=== PATIENT | female | born 2000 | race Caucasian/White ===

== ENCOUNTER 2021-01-26 11:54 | Emergency (ER) | payer OTHER, SELFPAY ==
[2021-01-26 13:04] VITALS: BP 123/87; PULSE 109; RESP 18; TEMP 37.6; O2SAT 95; BMI 40.3
[2021-01-26] MEDS: ondansetron 4 MG Tablet PO (14:17)
[2021-01-26] MEDS: HYDROcodone-acetaminophen 5-325 mg Tablet 1 TAB PO (14:17)
[2021-01-26 14:26] VITALS: RESP 15
[2021-01-26 14:32] LABS: HCG Qualitative Urine. Negative (Negative)
[2021-01-26 14:36] LABS: Add Urine Culture? No; Add Urine Microscopic? YES; Bacteria Urine 1+ /hpf; Bilirubin Urine Neg (Negative); Blood Urine Neg (Negative); Glucose Urine UA Norm (Normal); Ketones Urine Negative (Negative); Leukocyte Esterase Urine 1+ (Negative); Mucus Urine TRACE /hpf; Nitrate Urine Negative (Negative); Protein Urine Neg (Negative); Urine Appearance Clear (CLEAR); Urine Color Yellow (Yellow); Urobilinogen Urine Norm (Negative); WBC Urine 0-4 /hpf (0-5); pH Urine 6.5 (5-7)
--- NOTE | 2021-01-26 15:05 | W.ED.ABDPA2 ---
HPI - Abdominal Pain General: Chief Complaint: Abdominal Pain Stated Complaint: COVID + Time Seen by Provider: 01/26/21 13:45 Source: patient History of Present Illness: HPI narrative: Patient is day 6 with Covid. She has had mild cough but states that today her fever came back worse but she is mostly here because of some lower abdominal and back pain but she is also having body aches throughout her large muscle groups. She is concerned that she may have a UTI. Associated Symptoms: Reports fever(s) and nausea Related Data: Date of Last Menstrual Period: 09/19/19 Review of Systems Const: Reports: fever(s) ENMT: Reports: nasal congestion Resp: Reports: non-productive cough GI: Reports: abdominal pain and nausea : Reports: flank pain Musc: Reports: back pain and muscle cramps PFSH ED PFSH: Family History Other Hypertension Hypothyroid Social History Smoking and tobacco status: never smoked Alcohol intake: never Adopted: No Marital status: Single Female Reproductive History: Date of last menstrual period: 09/19/19 Physical Exam Const: COMMON NORMALS: no acute distress, average body habitus, patient oriented x3, no limitations, healthy appearing, alert and well nourished HENMT: COMMON NORMALS: normocephalic, atraumatic, hearing grossly normal bilaterally, external ears normal, EAC's normal, TM's normal bilaterally, Normal external nose present, Normal nasal mucous membranes and turbinates present, moist oral mucous membranes, oropharynx normal, dentition normal and gingiva normal HEAD & SCALP: normocephalic and atraumatic NOSE: Normal external nose present and Normal nasal mucous membranes and turbinates present EXTERNAL EAR: Yes external ears normal EXTERNAL AUDITORY CANAL: EAC's normal TYMPANIC MEMBRANE: TM's normal bilaterally Neck/C-Spine: COMMON NORMALS: no JVD Resp: COMMON NORMALS: normal respiratory effort, No retractions, No use of accessory muscles, clear to auscultation bilaterally and percussion normal AUSCULTATION: clear to auscultation bilaterally PERCUSSION: percussion normal Cardio: COMMON NORMALS: no JVD, regular rate, regular rhythm, S1 normal heart sound present, S2 normal heart sound present, No gallops present (Cardio), No clicks present (Cardio), No murmurs present (Cardio), No rub (Cardio) and Peripheral pulses 2+ throughout RATE: regular rate RHYTHM: regular rhythm HEART SOUNDS: S1 normal heart sound present and S2 normal heart sound present PERIPHERAL PULSES: Peripheral pulses 2+ throughout GI: COMMON NORMALS: Normal to inspection, nondistended, normoactive bowel sounds present, Soft to palpation, non-tender, No hepatosplenomegaly present, no masses and no bruits PALPATION: Yes Soft to palpation and Yes No hepatosplenomegaly present Neuro: COMMON NORMALS: patient oriented x3 SENSORIUM/ORIENTATION: Yes alert Course Vital Signs: Vital signs: Vital Signs Temperature 99.6 F 01/26/21 13:04 Pulse Rate 109 H 01/26/21 13:04 Respiratory Rate 15 01/26/21 14:26 Blood Pressure 123/87 01/26/21 13:04 Pulse Oximetry 95 01/26/21 13:04 MDM - Abdominal Pain MDM Narrative: Medical decision making narrative: Patient is well-appearing and does not appear to be in any respiratory distress. Pain is diffuse across the lower back and flanks and lower abdomen and does not seem to have any focal tenderness. Physical exam is benign. Suspect patient's symptoms are secondary to Covid. Will discharge patient home with Vik and Andreas. Lab Data: Labs: Lab Results 01/26/21 01/26/21 Range/Units 14:20 14:20 HCG, Qual Negative (Negative) Urine Color Yellow (Yellow) Urine Appearance Clear (CLEAR) Urine pH 6.5 (5-7) Ur Specific Gravit y 1.010 (1.005-1.030) Urine Protein Neg (Negative) Urine Glucose (UA) Norm (Normal) Urine Ketones Negative (Negative) Urine Blood Neg (Negative) Urine Nitrate Negative (Negative) Urine Bilirubin Neg (Negative) Urine Urobilinogen Norm (Negative) mg/dL Ur Leukocyte [place] 1+ H (Negative) Urine RBC None (0-2) /hpf Urine WBC 0-4 H (0-5) /hpf Ur Squamous Epith Cells 10-15 H (0-5) /hpf Amorphous Sediment Not Reportable Urine Bacteria 1+ H (NONE) /hpf Urine Mucus Trace /hpf Discharge Plan Discharge Prescriptions: No Action ciclopirox 8 % solution 1 applic topical DAILY 28 Days Qty: 6.6 RF: 0 hydrochlorothiazide 12.5 mg tablet 12.5 mg PO DAILY Qty: 30 RF: 0 dexamethasone [Decadron] 4 mg tablet 4 mg PO DAILY Qty: 7 RF: 0 azithromycin 250 mg tablet See Rx Instructions PO .COMPLEX Qty: 6 RF: 0 norethindrone-e.estradiol-iron [Junel FE 1.5/30 (28)] 1.5 mg-30 mcg (21)/75 mg (7) tablet See Rx Instructions .ROUTE .COMPLEX Qty: 84 RF: 0 Coding Level of Care Code ED [employer] Instructor for Nolan Greenfield
[2021-01-26 15:15] VITALS: RESP 15
== END 2021-01-26 15:16 | disposition home or self-care (01) ==
PROVIDERS: Registered Nurse; Emergency Provider Emergency Medicine; PCP Registered Nurse
DX: R10.9 Unspecified abdominal pain (principal)
CPT/HCPCS: 81001; 81025; 99283; Q0162

== ENCOUNTER → 2021-04-22 09:49 | Outpatient (BNVA) | payer OTHER, SELFPAY | PROVIDERS: PCP Registered Nurse; Visit Provider Registered Nurse | DX: L65.9 Nonscarring hair loss, unspecified (principal) | CPT/HCPCS: 84443 ==

== ENCOUNTER → 2021-11-11 08:50 | Outpatient (BNVA) | payer OTHER, SELFPAY | PROVIDERS: PCP Registered Nurse; Referring Provider Nurse Practitioner Family; Visit Provider Nurse Practitioner Women's Health | DX: R10.2 Pelvic and perineal pain (principal); N89.8 Other specified noninflammatory disorders of vagina | CPT/HCPCS: 87070; 87205; 87491; 87591; 87661 ==

== ENCOUNTER 2021-12-12 22:35 | Emergency (ER) | payer OTHER, SELFPAY ==
[2021-12-12 22:40] VITALS: BP 157/100; PULSE 98; RESP 18; TEMP 36.5; O2SAT 98; BMI 41.4
--- NOTE | 2021-12-12 22:57 | CTR_ITS ---
PROCEDURE INFORMATION: Exam: CT Head Without Contrast Exam date and time: 12/12/2021 11:08 PM Age: 20 years old Clinical indication: Weakness, facial; Additional info: Left side of face weakness TECHNIQUE: Imaging protocol: Computed tomography of the head without contrast. Radiation optimization: All CT scans at this facility use at least one of these dose optimization techniques: automated exposure control; mA and/or kV adjustment per patient size (includes targeted exams where dose is matched to clinical indication); or iterative reconstruction. COMPARISON: CT head wo con* [id number] 10/01/2017 4:32 PM RADIATION DOSE METRICS: Total DLP (mGy-cm): 815.48 FINDINGS: Brain: Normal. No hemorrhage. Unremarkable white matter. No mass effect. Cerebral ventricles: No ventriculomegaly. Paranasal sinuses: Visualized sinuses are unremarkable. No fluid levels. Mastoid air cells: Visualized mastoid air cells are well aerated. Bones/joints: Unremarkable. No acute fracture. Soft tissues: Unremarkable. CT/CT head wo con* [id number] IMPRESSION: No acute intracranial abnormality.
--- NOTE | 2021-12-12 22:58 | W.ED.NEUROSD ---
Documented by User: SHAUNA Park 12/13/21 01:07 HPI - Neuro Symptoms/Deficit General: Chief Complaint: Neuro Symptoms/Deficit Stated Complaint: Left side face delayed Time Seen by Provider: 12/12/21 22:40 History of Present Illness: Patient is a 20-year-old female comes to the ED with left side of face weakness. Facial weakness was noticeable around 8:30 tonight. Yesterday she developed some left ear pain and then had some tongue numbness yesterday as well but has continued today. She went and saw her PCP today to take a look at her ears and they thought her ears looked fine. Around 8:30 PM tonight she can tell she was having some weakness and trouble controlling the left side of her face and her family noticed it as well. She endorses having some mild left mandibular pain as well that originates from the left ear and then radiates down to her jaw. Denies any vision changes, headache or fevers. Associated symptoms: Deny chest pain, headache(s), nausea or vomiting Review of Systems Const: Denies: fever(s), chills or fatigue Eyes: Denies: change in vision or eye discomfort ENMT: Reports: ear or mastoid pain (Left ear) and other (Pain in left jaw); Denies: throat pain, odynophagia, nasal discharge or nasal congestion Card: Denies: chest pain, palpitations, edema, swelling of feet/ankles, dyspnea on exertion or orthopnea Resp: Denies: dyspnea, productive cough or non-productive cough GI: Denies: abdominal pain, nausea, vomiting, diarrhea, constipation or hematochezia : Denies: flank pain, dysuria or hematuria Musc: Denies: neck pain, back pain or extremity swelling Skin/Breast: Denies: rash or new lesions Neuro: Reports: other (Left side of face weakness); Denies: headache(s), numbness in extremities or weakness in extremities [facility] ED PFSH: Medical History COVID-19 (~01/2021) Essential hypertension (~2019) situational -- has resolved GERD (gastroesophageal reflux disease) Hypercholesteremia Morbid obesity No pertinent past medical history neghx: dm, thyroid, dvt/pe PCP: Dr. Mik Priest or [facility] Surgical History History of tonsillectomy and adenoidectomy Hx of myringoplasty Family History Mother Heart disease Hypercholesteremia Hypertension Grandmother Heart disease Stroke Thyroid disease Denies family history of Colon cancer Ovarian cancer Diabetes Breast cancer Uterine cancer Female Reproductive History: Date of last menstrual period: 12/10/21 NIH stroke score NIHSS: Level Of Consciousness - 1a: 0 Level Of Consciousness Questions - 1b: Both Correct Level Of Consciousness Commands - 1c: Both Correct Best Gaze - 2: Normal Visual Frazier - 3: No Visual Loss Facial Palsy - 4: Partial Paralysis Motor Arm Right - 5: No Drift Motor Arm Left - 5: No Drift Motor Leg Right - 6: No Drift Motor Leg Left - 6: No Drift Limb Ataxia - 7: Absent Sensory - 8: Normal Best Language - 9: No Aphasia Dysarthia - 10: Normal Extinction And Inattention - 11: 0 Score: Total Score: 2 Physical Exam Const: COMMON NORMALS: patient oriented x3 and alert GENERAL APPEARANCE: cooperative and comfortable HENMT: COMMON NORMALS: normocephalic HEAD & SCALP: normocephalic MOUTH: Normal oral and palatal mucosa present THROAT: posterior oropharynx normal and uvula midline Eye: COMMON NORMALS: Equal, round and reactive pupils present, EOMs intact bilaterally, conjunctivae normal and normal visual frazier by confrontation CONJUNCTIVA: Yes conjunctivae normal PUPIL: Yes Equal, round and reactive pupils present Neck/C-Spine: COMMON NORMALS: supple GENERAL: Yes normal visual inspection Resp: COMMON NORMALS: normal respiratory effort, No retractions, No use of accessory muscles and clear to auscultation bilaterally AUSCULTATION: clear to auscultation bilaterally Cardio: COMMON NORMALS: regular rate, regular rhythm, S1 normal heart sound present, S2 normal heart sound present, No gallops present (Cardio), No clicks present (Cardio), No murmurs present (Cardio) and Peripheral pulses 2+ throughout RATE: regular rate RHYTHM: regular rhythm HEART SOUNDS: S1 normal heart sound present and S2 normal heart sound present PERIPHERAL PULSES: Peripheral pulses 2+ throughout GI: COMMON NORMALS: Normal to inspection, nondistended, normoactive bowel sounds present, Soft to palpation, non-tender and no masses PALPATION: Yes Soft to palpation : COMMON NORMALS: Yes no CVA tenderness BLADDER/KIDNEY EXAM: Yes no CVA tenderness Back/Pelvis: COMMON NORMALS: no CVA tenderness Neuro: COMMON NORMALS: patient oriented x3, moves all extremities, no focal motor deficits and no sensory deficits noted SENSORIUM/ORIENTATION: Yes alert CRANIAL NERVES: Yes CN VII (facial) Laterality: left CN VII left: facial droop, unable to puff cheeks, unable to raise eyebrow(s), weak closing of eye(s), asymmetrical smile and other (Paralysis of forehead as well) COORDINATION/BALANCE: [id number] test normal SPEECH: speech normal SENSORY EXAM: Yes extremities (intact) MOTOR EXAM: 5/5 motor strength present throughout COORDINATION: [id number] test normal OTHER: Patient has visible left-sided facial droop. Patient also has some paralysis that involves left forehead. Skin: GENERAL SKIN EXAM: dry skin Course Vital Signs: Vital signs: Vital Signs Temperature 97.7 F 12/12/21 22:40 Pulse Rate 87 12/13/21 01:03 Respiratory Rate 20 H 12/13/21 01:03 Blood Pressure 128/80 12/13/21 01:03 Pulse Oximetry 98 12/13/21 01:03 MDM - Neuro Symptoms/Deficit Medical Decision Making Patient is a 20-year-old female comes to the ED with left facial weakness. Symptoms started approximately 2 hours before arrival to the ED. Vitals are stable. Exam of patient does show some left facial droop. She has weakness to left side of face and it involves her forehead as well which is suggestive of possible Jurado's palsy. The rest of her neuro exam is normal and she has no other deficits. NIHSS-2. Head CT showed no acute findings. I discussed case with Dr. Hein and my suspicions for Jurado's palsy. He came in and took a look at patient as well and agreed. She was diagnosed with Jurado's palsy and was given a dose of steroid here in the ED and discharged home with a prescription for steroids. She was told to follow-up with her PCP within the next 7 days for reevaluation. Return to ED precautions given. Patient understood and agreed with plan. Lab Data Radiology Impressions Head CT 12/12/21 22:57 IMPRESSION: No acute intracranial abnormality. Discharge Plan Discharge Patient Disposition: Home Clinical Impression: Jurado's palsy Condition: Stable Prescriptions: New Medrol (Yg) 4 mg tablets,dose pack See Rx Instructions .ROUTE .COMPLEX Qty: 21 0RF Rx Instructions: orally per package directions No Action atorvastatin 20 mg tablet 20 mg PO DAILY 0RF ibuprofen 800 mg tablet 800 mg PO TID PRN (Reason: pain) Qty: 30 1RF omeprazole 20 mg capsule,delayed release(DR/EC) 20 mg PO DAILY 0RF norethindrone-e.estradiol-iron [Junel FE 1.5/30 (28)] 1.5 mg-30 mcg (21)/75 mg (7) tablet See Rx Instructions .ROUTE .COMPLEX Qty: 84 0RF Dose Instruction: Take 1 tablet by mouth once daily Rx Instructions: Take 1 tablet by mouth once daily levocetirizine [Xyzal] 5 mg tablet 5 mg PO BEDTIME Qty: 30 0RF Discharge Orders: Discharge ED (Routine); Ordered 12/13/21 Ordered By: Elias Pillai Referrals: Kris Priest FNP [Primary Care Provider] - Discharge Diet: Regular Discharge Activity: Resume usual activity Patient Instructions: Jurado Palsy (ED) Activity Restrictions/Additional Instructions: Follow-up with medical provider as directed within the next 7 days for reevaluation. Take medications as prescribed. Return to the ER or your medical provider if condition worsens. Please read and understand discharge instructions. Thank you for choosing [facility] for your healthcare needs today. Please realize this is an emergency room and that we are providing you with a medical screening exam and this may not be complete and all inclusive of all the testing and or work up that you may need to determine your ailment or severity of your illness. It is very important that you follow up as instructed or that you return to the Emergency Department should you have concerns or if your condition changes or worsens in any way. Coding Level of Care Code ED Glued Wood Tester for Chg Fwd Exam Comprehensive Documented by User: Izaiah Hein, DO 12/13/21 03:26 HPI - Neuro Symptoms/Deficit General: Chief Complaint: Neuro Symptoms/Deficit Stated Complaint: Left side face delayed Time Seen by Provider: 12/12/21 22:40 [facility] ED PFSH: Medical History COVID-19 (~01/2021) Essential hypertension (~2019) situational -- has resolved GERD (gastroesophageal reflux disease) Hypercholesteremia Morbid obesity No pertinent past medical history neghx: dm, thyroid, dvt/pe PCP: Dr. Mik Priest or [facility] Surgical History History of tonsillectomy and adenoidectomy Hx of myringoplasty Family History Mother Heart disease Hypercholesteremia Hypertension Grandmother Heart disease Stroke Thyroid disease Denies family history of Colon cancer Ovarian cancer Diabetes Breast cancer Uterine cancer NIH stroke score Score: Total Score: 2 Course Vital Signs: Vital signs: Vital Signs Temperature 97.7 F 12/12/21 22:40 Pulse Rate 87 12/13/21 01:03 Respiratory Rate 20 H 12/13/21 01:03 Blood Pressure 128/80 12/13/21 01:03 Pulse Oximetry 98 12/13/21 01:03 MDM - Neuro Symptoms/Deficit Medical Decision Making Patient is a 20-year-old female comes to the ED with left facial weakness. Symptoms started approximately 2 hours before arrival to the ED. Vitals are stable. Exam of patient does show some left facial droop. She has weakness to left side of face and it involves her forehead as well which is suggestive of possible Jurado's palsy. The rest of her neuro exam is normal and she has no other deficits. NIHSS-2. Head CT showed no acute findings. I discussed case with Dr. Hein and my suspicions for Jurado's palsy. He came in and took a look at patient as well and agreed. She was diagnosed with Jurado's palsy and was given a dose of steroid here in the ED and discharged home with a prescription for steroids. She was told to follow-up with her PCP within the next 7 days for reevaluation. Return to ED precautions given. Patient understood and agreed with plan. This patient was originally seen by Mr. Freya PA-C.? I have seen the patient as well. I agree with his history, evaluation, and treatment. Lab Data Radiology Impressions Head CT 12/12/21 22:57 IMPRESSION: No acute intracranial abnormality. Discharge Plan Discharge Patient Disposition: Home Clinical Impression: Jurado's palsy Condition: Stable Prescriptions: New Medrol (Yg) 4 mg tablets,dose pack See Rx Instructions .ROUTE .COMPLEX Qty: 21 0RF Rx Instructions: orally per package directions No Action atorvastatin 20 mg tablet 20 mg PO DAILY 0RF ibuprofen 800 mg tablet 800 mg PO TID PRN (Reason: pain) Qty: 30 1RF omeprazole 20 mg capsule,delayed release(DR/EC) 20 mg PO DAILY 0RF norethindrone-e.estradiol-iron [Junel FE .5/ (28)] 1.5 mg-30 mcg (21)/75 mg (7) tablet See Rx Instructions .ROUTE .COMPLEX Qty: 84 0RF Dose Instruction: Take 1 tablet by mouth once daily Rx Instructions: Take 1 tablet by mouth once daily levocetirizine [Xyzal] 5 mg tablet 5 mg PO BEDTIME Qty: 30 0RF Discharge Orders: Discharge ED (Routine); Ordered 12/13/21 Ordered By: Elias Pillai Referrals: Kris Priest FNP [Primary Care Provider] - Discharge Diet: Regular Discharge Activity: Resume usual activity Patient Instructions: Jurado Palsy (ED) Activity Restrictions/Additional Instructions: Follow-up with medical provider as directed within the next 7 days for reevaluation. Take medications as prescribed. Return to the ER or your medical provider if condition worsens. Please read and understand discharge instructions. Thank you for choosing [facility] for your healthcare needs today. Please realize this is an emergency room and that we are providing you with a medical screening exam and this may not be complete and all inclusive of all the testing and or work up that you may need to determine your ailment or severity of your illness. It is very important that you follow up as instructed or that you return to the Emergency Department should you have concerns or if your condition changes or worsens in any way. Coding Level of Care Code ED Glued Wood Tester for Nolan Fwd Exam Comprehensive
[2021-12-13] VITALS: BP 124/81; PULSE 90; RESP 18; O2SAT 95
[2021-12-13 01:00] VITALS: BP 178/97; PULSE 91; RESP 16; O2SAT 95
[2021-12-13 01:03] VITALS: BP 128/80; PULSE 87; RESP 20; O2SAT 98
== END 2021-12-13 00:45 | disposition home or self-care (01) ==
PROVIDERS: Emergency Provider Physician Assistant; PCP Registered Nurse
DX: G51.0 Bell's palsy (principal)
CPT/HCPCS: 70450; 96372; 99283; J2930

== ENCOUNTER → 2022-07-19 16:04 | Outpatient (BNVA) | payer OTHER, SELFPAY | PROVIDERS: PCP Registered Nurse; Visit Provider Emergency Medicine | DX: R05.9 Cough, unspecified (principal); J06.9 Acute upper respiratory infection, unspecified | CPT/HCPCS: 87400 ==

== ENCOUNTER → 2023-01-20 17:22 | Outpatient (BNVA) | payer OTHER, SELFPAY | PROVIDERS: PCP Registered Nurse; Visit Provider Emergency Medicine | DX: J02.9 Acute pharyngitis, unspecified (principal); J20.8 Acute bronchitis due to other specified organisms; B96.89 Other specified bacterial agents as the cause of diseases classified elsewhere | CPT/HCPCS: 87070; 87071; 87880 ==

== ENCOUNTER 2023-03-03 11:16 | Outpatient (CLI) | payer OTHER, SELFPAY ==
--- NOTE | 2023-03-03 11:31 | XRR_ITS ---
PROCEDURE INFORMATION: Exam: XR Chest Exam date and time: 03/03/2023 11:56 AM Age: 22 years old Clinical indication: Shortness of breath TECHNIQUE: Imaging protocol: Radiologic exam of the chest. Views: 2 views. COMPARISON: No relevant prior studies available. FINDINGS: Lungs: Unremarkable. No consolidation. Pleural spaces: Unremarkable. No pleural effusion. No pneumothorax. Heart/Mediastinum: Unremarkable. No cardiomegaly. Bones/joints: Mild biphasic spinal curvature. XR/XR chest 2V* [id number] IMPRESSION: No acute findings.
== END 2023-03-03 11:17 | disposition home or self-care (01) ==
PROVIDERS: PCP Registered Nurse; Visit Provider Nurse Practitioner Family
DX: R06.02 Shortness of breath (principal)
CPT/HCPCS: 71046

== ENCOUNTER 2023-03-17 10:05 | Outpatient (CLI) | payer OTHER, SELFPAY | END 2023-03-17 10:06 | disposition home or self-care (01) | PROVIDERS: PCP Nurse Practitioner Family; Visit Provider Nurse Practitioner Family | DX: R06.02 Shortness of breath (principal) | CPT/HCPCS: 94010; 94726; 94729 ==

== ENCOUNTER → 2023-04-05 10:45 | Outpatient (BNVA) | payer OTHER, SELFPAY | PROVIDERS: PCP Nurse Practitioner Family; Visit Provider Internal Medicine Cardiovascular Disease | DX: R00.0 Tachycardia, unspecified (principal) | CPT/HCPCS: 93005 ==

== ENCOUNTER → 2023-08-31 16:35 | Outpatient (BNVA) | payer OTHER, SELFPAY | PROVIDERS: PCP Nurse Practitioner Family; Visit Provider Nurse Practitioner Family | DX: R05.9 Cough, unspecified (principal) | CPT/HCPCS: 71046 ==

== ENCOUNTER → 2023-11-30 11:08 | Outpatient (BNVA) | payer OTHER, SELFPAY | PROVIDERS: PCP Nurse Practitioner Family; Visit Provider Nurse Practitioner Women's Health | DX: Z31.9 Encounter for procreative management, unspecified (principal); E66.01 Morbid (severe) obesity due to excess calories; I10 Essential (primary) hypertension; E78.00 Pure hypercholesterolemia, unspecified; Z30.011 Encounter for initial prescription of contraceptive pills; Z01.419 Encounter for gynecological examination (general) (routine) without abnormal findings; Z30.41 Encounter for surveillance of contraceptive pills | CPT/HCPCS: 82306; 83036; 84443; 85025; 86762; 88175 ==

== ENCOUNTER 2023-12-09 11:39 | Outpatient (CLI) | payer OTHER, SELFPAY ==
--- NOTE | 2023-12-09 11:56 | OP.DCCON ---
Reason for Visit: E66.01 - Morbid (severe) obesity due to excess sima Person Interviewed: Patient Medical History, Labs and Background: hypoactive thyroid, wants to get Height: 4 ft 8 in Weight: 311 lb BMI: 50.3 kg/m2 IBW: 200lbs Weight History: Never tiny...in high school weighed 257 and that is what she wants to get back too, initially. Then Vicky would like to be 200 lbs. Concerns and Goals: First goal is 260lbs, IBW is 200lbs. Sleep Hygiene: She sleeps really well - no big issues. Physical Activity: Like sports more than walking - volleyball - but might be willing to do some walking. Food Allergies and Sensitivities: Big problems with eggs (but can eat eggs in foods), lactose intolerant or maybe just sensitive 24 Hour Recall: Breakfast Time: 6:30am poptart on way to work/school Snack Time: Lunch Time: 11:30am whatever school lunch is... Snack Time: Dinner Time: 6:30pm cooks meat/veg/pasta Snack Time: sweets... Eating Out: Roughly eats out 1-3x/week for [employer] or [employer] Soda vs Milk vs Water: She doesn't like water and has maybe 1-2 sodas/month and no coffee/milk at this time. Additional Comments: Fixing meals that both she and her fiance like is an issue. Vicky says she meal preps d/t financial constraints. Sweets, especially chocolate, are a weakness. Sometimes when she is busy she doesn't eat until lunch or dinner and then she is starving. When in high school she played a sport every season, but isn't a big fan of walking. Her Mom and mother-in law and fiance are all sources of support and encouragement. Recommendations: Assessment: Vicky would like to lose weight and to figure out how to cook for herself and her fiance who is a picky eater. In general she is willing to make changes, especially because she wants to start a family at some point. Nutrition diagnosis: Excessive calorie intake r/t habits and patterns AEB BMI of 50 kg/m2. Intervention: We wrote down goals and the first was to eat something at breakfast other then a poptart - preferably a high protein shake or smoothie, with the idea that she wouldn't be so hungry and/or starving later. Encouraged 3 meals or high quality snacks to avoid being so hungry that she makes poor food choices or overeats. Next we talked about creating the right environment at home, utilizing their practice of meal planning and prepping, and having the kinds of foods in the fridge/pantry that suit her preferences. We talked about healthy snack foods to have on hand that would always combine protein like cheese or peanut butter or hummus with fresh veggies or fruits or whole grain/ high protein carbs. Then we discussed drinking water and settled on 40-60ounces/day. Since she can't play as many sports as she did in high school we talked about a modest goal of walking 10-15 minutes/day for 2-3 x/week to start - emphasizing the importance of activity not only in weight loss but also mental and emotional health. Because she likes to look up recipes, I suggested the Mediterranean style of eating. In the end we talked about high protein, low carb eating and that she needed to start with simple changes and build from there. In regards to her fiance being a picky eater, I recommended that he take part in the cooking and meal prep if he is unwilling to eat what she fixes. Monitoring and evaluation: The above stated goals were written on a take home sheet that included my name and email and phone for follow up as needed. Coding Level of Care Code Nutrition/Individ/Init 60 min Time Spent (min) 60
== END 2023-12-09 11:40 | disposition home or self-care (01) ==
PROVIDERS: PCP Nurse Practitioner Family; Visit Provider Nurse Practitioner Women's Health
DX: E66.01 Morbid (severe) obesity due to excess calories (principal); I10 Essential (primary) hypertension; E78.00 Pure hypercholesterolemia, unspecified; Z31.9 Encounter for procreative management, unspecified
CPT/HCPCS: 97802

== ENCOUNTER → 2024-03-19 12:25 | Outpatient (BNVA) | payer OTHER, SELFPAY | PROVIDERS: PCP Nurse Practitioner Family; Visit Provider Emergency Medicine | DX: M54.50 Low back pain, unspecified (principal); R39.9 Unspecified symptoms and signs involving the genitourinary system | CPT/HCPCS: 81000; 87086 ==

== ENCOUNTER 2024-08-01 16:02 | Outpatient (CLI) | payer OTHER, SELFPAY ==
[2024-08-01 17:12] LABS: Basophils # 0.1 10^3/uL (0.0-0.1); Basophils % 0.6 %; Eosinophils # 0.1 10^3/uL (0.0-0.8); Eosinophils % 1.4 %; Hematocrit 40.4 % (36-47); Lymphocytes # 2.2 10^3/uL (0.8-4.8); Lymphocytes % 28.3 %; Mean Corpuscular HGB Conc 32.7 g/dL (30-55); Mean Corpuscular Hemoglobin 28.8 pg (27-33); Mean Corpuscular Volume 88.2 fl (85-98); Monocytes # 0.6 10^3/uL (0.2-0.9); Monocytes % 7.2 %; Neutrophils # 4.85 10^3/uL (1.8-7.7); Neutrophils % 62.1 %; Nucleated Red Blood Cells % 0 %; Platelet Count 258 10^3/cmm (157-399); Red Blood Count 4.58 10^6/uL (3.85-5.65); Red Cell Distribution Width 13.3 % (12.1-15.1); White Blood Count 7.81 10^3/uL (3.29-11.43)
[2024-08-01 17:15] LABS: Bilirubin Urine Negative (Negative); Blood Urine Negative (Negative); Glucose Urine UA Negative (Normal); Ketones Urine Negative (Negative); Leukocyte Esterase Urine 2+ (Negative); Nitrate Urine Negative (Negative); Protein Urine Negative (Negative); Specific Gravity, Urine 1.024 (1.005-1.030); Urine Appearance Clear (CLEAR); Urine Color Yellow (Yellow); Urobilinogen Urine 0.2 mg/dL (Negative); pH Urine 5.5 (5-7)
[2024-08-01 17:18] LABS: Bacteria Urine 3+ /hpf; Hyaline Casts Urine 1.21 /lpf; RBC Urine 0-2 /hpf (0-2); Squamous Epithelial Cell Urine 0-5 /hpf (0-5)
[2024-08-01 17:19] LABS: Add Urine Culture? Yes
[2024-08-01 18:10] LABS: 25 Hydroxy Vitamin D 39 ng/mL (30-100); Alanine Aminotransferase 17 U/L (0-33); Albumin Level 4.2 g/dL (3.5-5.2); Alkaline Phosphatase 52 U/L (35-105); Anion Gap 15.8 (5-19); Aspartate Amino Transferase 13 U/L (0-32); Blood Urea Nitrogen 17 mg/dL (6-20); Calcium 9.8 mg/dL (8.5-10.5); Carbon Dioxide 21 mmol/L (22-29); Chloride 104 mmol/L (98-107); Chol HDL Ratio 4.37 mg/dL (0.0-4.40); Cholesterol 179 mg/dL (0-200); Glomerular Filtration Rate 88.9 mL/min (90-130); Glucose 74 mg/dL (65-115); HDL Cholesterol 41 mg/dL (60-100); LDL Cholesterol Calculated 108 mg/dL (50-129); LDL HDL Ratio 2.63 RATIO (0.00-3.22); Osmolality Calculated 284 mOsm/kg (285-295); Potassium 3.8 mmol/L (3.5-5.1); Sodium 137 mmol/L (136-145); Thyroid Stimulating Hormone 4.16 uIU/mL (0.27-4.20); Total Bilirubin 0.2 mg/dL (0.15-1.2); Total Protein 7.2 g/dL (6.6-8.7); Triglycerides 149 mg/dL (0-150)
[2024-08-01 21:38] LABS: Estmated Average Glucose 131; Hemoglobin A1C 6.2 % (4.0-6.0)
== END 2024-08-01 16:03 | disposition home or self-care (01) ==
PROVIDERS: PCP Nurse Practitioner Family; Visit Provider Nurse Practitioner Family
DX: E55.9 Vitamin D deficiency, unspecified (principal); I10 Essential (primary) hypertension; E78.00 Pure hypercholesterolemia, unspecified; E03.9 Hypothyroidism, unspecified; E66.01 Morbid (severe) obesity due to excess calories
CPT/HCPCS: 80053; 80061; 81001; 82306; 83036; 84443; 85025; 87086

== ENCOUNTER → 2025-02-21 11:05 | Outpatient (BNVA) | payer OTHER, SELFPAY | PROVIDERS: PCP Nurse Practitioner Family; Visit Provider Nurse Practitioner Family | DX: Z91.018 Allergy to other foods (principal); E55.9 Vitamin D deficiency, unspecified; E03.9 Hypothyroidism, unspecified; R73.09 Other abnormal glucose; D64.9 Anemia, unspecified | CPT/HCPCS: 82306; 82607; 82728; 82746; 82785; 83036; 83550; 84439; 84443; 86001; 86003; 86008 ==

== ENCOUNTER → 2025-07-03 10:19 | Outpatient (BNVA) | payer OTHER, SELFPAY | PROVIDERS: PCP Nurse Practitioner Family; Visit Provider Nurse Practitioner Women's Health | DX: N92.6 Irregular menstruation, unspecified (principal); R73.03 Prediabetes; E03.9 Hypothyroidism, unspecified | CPT/HCPCS: 81025; 83036; 84443; 84702 ==

== ENCOUNTER → 2025-07-06 13:54 | Outpatient (BNVA) | payer OTHER, SELFPAY | PROVIDERS: PCP Nurse Practitioner Family; Visit Provider Nurse Practitioner Women's Health | DX: Z34.90 Encounter for supervision of normal pregnancy, unspecified, unspecified trimester (principal); E03.9 Hypothyroidism, unspecified; R73.03 Prediabetes | CPT/HCPCS: 82950; 84439; 84702 ==